=== PATIENT | female | born 1980 | race Caucasian/White ===

== ENCOUNTER 2017-07-07 20:54 | Emergency (ER) | payer OTHER ==
--- NOTE | 2017-07-07 20:56 | PDOC ---
History of Present Illness - General History Source: Patient Exam Limitations: No Limitations - General Chief Complaint: Lightheaded Stated Complaint: AFTER CLEANING, FELT DIZZY, TINGLING IN HANDS Time Seen by Provider: 07/07/17 20:55 - History of Present Illness Initial Comments: 07/07/17 21:15 The patient is a 36 year old female with no significant past medical history who presents to the ED complaining of an episode of lightheadedness that began this evening. She states she was cleaning her floors with "shout" vehicle and equipment cleaner and subsequently developed lightheadedness and bilateral upper extremity tingling. She states she was on her hands and knees scrubbing with a large amount of solution and a paper towel. She sat down on her couch, no fall or loss of consciousness. Her symptoms have since resolved. She denies any headache, blurred vision, or focal weakness. She denies chest pain or shortness of breath. She denies fever or chills. 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 PAST MEDICAL HISTORY: as per HPI PAST SURGICAL HISTORY: no significant history FAMILY HISTORY: no pertinent history SOCIAL HISTORY: Pt lives with family and is employed. MEDICATIONS: reviewed ALLERGIES: As per nursing notes Adult ROS General: No fevers or chills, no weakness, no weight loss HEENT: No change in vision. No sore throat,. No ear pain CardioVascular: +Lightheadedness. No chest pain or shortness of breath Respiratory:No cough, or wheezing. Gastrointestinal: +nausea. no vomiting, diarrhea or constipation, No rectal bleeding Genitourinary: No dysuria, hematuria, or frequency Musculoskeletal: No joint or muscle pain or swelling Neurologic: +B/l upper extremity tingling. No headache, vertigo, dizziness or loss of consciousness Psychiatric: nor depression Skin: No rashes or easy bruising Endocrine: no increased thirst or abnormal weight change Allergic: no skin or latex allergy All other systems reviewed and normal Adult Exam: General: Well-nourished well-developed individual, no acute distress HEENT: Throat: Normal, tonsils normal, no erythema or exudate Neck: Supple, no meningeal signs, no lymphadenopathy Eyes::Pupils equal reactive and round, extraocular motion intact Chest: Nontender to palpation Cardiac: S1-S2 normal, regular rate and rhythm, no murmurs rubs or gallops Respiratory: Lungs clear to auscultation bilateral Extremities: Warm, dry, no cyanosis, clubbing, or edema Skin: No rashes Neuro: Alert and oriented x3, nonfocal exam, grossly intact, normal gait Psych: Normal mood and affect 07/07/17 21:21 Documentation prepared by Susie Fisher, acting as medical office technician for Kathy Sullivan MD. (Susie Fisher) A portion of this note was documented by scribe services under my direction. I have reviewed the details of the note, within reason, and agree with the documentation. The case summary and management plan written by me. EKG normal sinus rhythm normal intervals no acute ST-T wave changes normal EKG Assessment and plan: This is a 36-year-old female who was using a block cleaner that has a significant amount of hydrocarbons in it. Patient is rated a large amount on it paper towel and was using it to scrub the carpet when she be began to feel dizzy lightheaded and slightly nauseous after breathing the fumes. Patient removed herself from the area and was sitting on a couch but still in the same room. Patient's called EMS and she was brought in for evaluation By the time she arrived here symptoms had completely resolved and she was back to filling normal. Patient had a history of atrial fibrillation in the past so EKG was done to rule out atrial fibrillation the EKG was normal sinus rhythm and normal EKG Patient was discharged home with her family 07/07/17 21:38 (Kathy Sullivan I) Past History - Past Medical History Allergies/Adverse Reactions: Allergies Allergy/AdvReac Type Severity Reaction Status Date / Time No Known Allergies Allergy Verified 07/07/17 20:56 Home Medications: Ambulatory Orders NK [No Known Home Medication] 07/07/17 - Vital Signs Last Vital Signs Temp Pulse Resp BP Pulse Ox 98.2 F 81 16 141/69 100 07/07/17 20:57 07/07/17 20:57 07/07/17 20:57 07/07/17 20:57 07/07/17 20:57 *DC/Admit/Observation/Transfer - Discharge Dispostion Admit: No Diagnosis at time of Disposition: Exposure to chemical inhalation - Discharge Dispostion Disposition: HOME Condition at time of disposition: Stable - Patient Instructions Additional Instructions: When using cleaning chemicals that emit fumes make sure that you use them in a well ventilated area and wear a mask, Return to the emergency department immediately with ANY new, persistent or worsening symptoms. Continue any medications as previously prescribed by your physician. You should follow up with your primary doctor as soon as possible regarding today's emergency department visit. . Please make sure your doctor reviews the results of your emergency evaluation. Thank you for coming to the Emergency Department today for your care. It was a pleasure to see you today. Please note that your evaluation is INCOMPLETE until you follow-up with your doctor.
[2017-07-07 21:00] VITALS: BP 141/69; PULSE 81; TEMP 98.2; BMI 26.6
--- NOTE | 2017-07-08 11:59 | EKG ---
Test Reason : Blood Pressure : / mmHG Vent. Rate : 076 BPM Atrial Rate : 076 BPM P-R Int : 136 ms QRS Dur : 080 ms QT Int : 402 ms P-R-T Axes : 039 053 073 degrees QTc Int : 452 ms POOR DATA QUALITY, INTERPRETATION MAY BE ADVERSELY AFFECTED NORMAL SINUS RHYTHM NORMAL ECG NO PREVIOUS ECGS AVAILABLE Confirmed by MD Martha, Nito ([id number]) on 07/08/2017 11:59:36 AM Referred By: Confirmed By:Nito Thomas MD
== END 2017-07-07 21:47 | disposition home or self-care (01) ==
LOC: FER 20:54
DX: Z77.018 Contact with and (suspected) exposure to other hazardous metals (principal)
CPT/HCPCS: 93005; 99281-25